=== PATIENT | male | born 1985 | race Two or more races ===

== ENCOUNTER 2018-11-03 06:08 | Day surgery (SDC) | payer OTHER ==
[~2018-11-03] VITALS: Ht 182.9 cm; Wt 103.0 kg
[2018-11-03] VITALS (7 sets, daily range): BP systolic 144–161; BP diastolic 56–90
[2018-11-03] MEDS ORDERED: famotidine 20mg tablet PO ONE (06:30)
[2018-11-03] MEDS ORDERED: ringers solution, lacted 1,000 ML IV SCH ×2 (06:30→09:20)
[2018-11-03] MEDS ORDERED: cefazolin/dext.iso 2gm/100 ML IV ONE (06:30)
[2018-11-03] MEDS ORDERED: fentaNYL /PF 50mcg/ml 5ml ampule ONE (08:36)
[2018-11-03] MEDS ORDERED: MIDAZolam 5mg/5ml vial ONE (08:36)
[2018-11-03] MEDS ORDERED: propofol inj 20 ML IV ONE (08:38)
[2018-11-03] MEDS ORDERED: cloNIDine hcl/PF 100mcg/ml inj ONE (08:46)
[2018-11-03] MEDS ORDERED: ROPIVAcaine 0.5% (5mg/ml) 30ml vial ONE ×3 (08:49→09:30)
[2018-11-03] MEDS ORDERED: morphine 4 MG/ML inj SYRINge IV PRN ×2 (09:20)
[2018-11-03] MEDS ORDERED: ceFAZolin 1000mg inj ONE (09:20)
[2018-11-03] MEDS ORDERED: ondansetron/PF 4mg/2ml inj IV PRN (09:20)
[2018-11-03] MEDS ORDERED: proCHLORperazine 10 MG/2 ml inj IV PRN (09:20)
[2018-11-03] MEDS ORDERED: meperidine/PF 25mg/ml syringe IV PRN ×3 (09:20)
[2018-11-03] MEDS ORDERED: dexamethasone sod phosphate 4mg/ml inj. ONE (09:36)
[2018-11-03] MEDS ORDERED: ondansetron/PF 4mg/2ml inj ONE (09:36)
[2018-11-03] MEDS ORDERED: ketorolac trometh. 30mg/ml inj. ONE (10:03)
--- NOTE | 2018-11-03 10:17 | NUR ---
Received from OR via [facility] , accompanied by Anesthesiologist SKY and report given by Anesthesiolgist. PATIENT WITH 18G PIV IN LEFT AC RUNNING LRA T 100. ORAL AIRWAY IN PLACE. WILL REMOVE ONCE ABLE TO PROTECT OWN AIRWAY. RIGHT KNEE WITH KARISSA BRACE IN PLACE. VSS. 2 GAURDS ACCOMPANIED PATIENT. VSS. Addendum: 11/03/18 at 1030 by Rodney Gonzlaez RN, RN Amended: Links added.
--- NOTE | 2018-11-03 10:32 | NUR ---
ADDENDUM. PULSE RATE UPON ARRIVAL WAS 76 NOT 156 Addendum: 11/03/18 at 1032 by Rodney Gonzalez RN, RN Amended: Links added.
--- NOTE | 2018-11-03 11:07 | NUR ---
ALL DC CRITERIA, RIGHT KNEE DRESSING IS CDI. VSS. ASSISTED INTO KARISSA BUCKLEY IN PLACE. DENIES PAIN. IV OUT WITHOUT COMPLICATIONS. OUT VIA WHEELCHAIR. Addendum: 11/03/18 at 1142 by Rodney Gonzalez RN, RN Amended: Links added.
== END 2018-11-03 11:07 ==
LOC: PAS 06:08 → EEVIPCON 08:30 → PAS 11:07
PROVIDERS: ATTEND Orthopaedic Surgery
DX: S83.511A Sprain of anterior cruciate ligament of right knee, initial encounter (principal); G89.18 Other acute postprocedural pain; Z79.899 Other long term (current) drug therapy; X58.XXXA Exposure to other specified factors, initial encounter; Y93.89 Activity, other specified; Y92.89 Other specified places as the place of occurrence of the external cause; Y99.8 Other external cause status
CPT/HCPCS: 29888; 64447; 82948; C1713; J0690; J0735; J1100; J1885; J2250; J2405; J2704; J3010; J7120; L1832; A4215; A4618; A6449; A7000; J2795